=== PATIENT | male | born 1955 | race Caucasian/White ===

== ENCOUNTER 2017-10-21 18:28 | Emergency (ER) | payer BC ==
[2017-10-21] MEDS ORDERED: Diphtheria,Pertussis(Acell),Tetanus Vaccine 0.5 ML Syringe IM ONE (19:15)
--- NOTE | 2017-10-21 19:25 | EDM.PDOC ---
ED HPI GENERAL MEDICAL PROBLEM - General Chief Complaint: Laceration Stated Complaint: LACERATION RT MIDDLE FINGER Time Seen by Provider: 10/21/17 19:15 - History of Present Illness INITIAL COMMENTS - FREE TEXT/NARRATIVE: HISTORY AND PHYSICAL: History of present illness: The patient is a 62 year-old male who is a diabetic and presents with complaints of a tissue loss laceration to the tip of his right third finger that occurred while he was using a mandolin cutting onions. He has no other complaints of finger or hand pain and is unsure of his last tetanus shot. Patient is able to flex and extend it all the digits and was in his usual state of good health prior to these events. Review of systems: As per history of present illness and below otherwise all systems reviewed and negative. Past medical history: As per history of present illness and as reviewed below otherwise noncontributory. Surgical history: As per history of present illness and as reviewed below otherwise noncontributory. Social history: No reported history of drug or alcohol abuse. Family history: As per history of present illness and as reviewed below otherwise noncontributory. Physical exam: : Well-developed well-nourished man who is nontoxic and vital signs reviewed by me HEENT: Atraumatic, normocephalic, negative for conjunctival pallor or scleral icterus, mucous membranes moist, throat clear, neck supple, nontender, trachea midline. Lungs: Clear to auscultation, breath sounds equal bilaterally, chest nontender. Heart: S1S2, regular rate and rhythm no overt murmurs Abdomen: Deferred Pelvis: Deferred Genitourinary: Deferred. Rectal: Deferred. Extremities: Atraumatic except for the soft tissue tuft of the right third digit where there is a 1 cm in diameter circular area of tissue loss which is clean and not irregular. There is active oozing at the tip of the finger. The nail and nailbed are intact. Patient is able to flex and extend at this digit and then no other injuries on the remainder of the fingers or hand. The legs are , negative for cords or calf pain. Neurovascular unremarkable. Neuro: Awake, alert, oriented. Cranial nerves II through XII unremarkable. Cerebellum unremarkable. Motor and sensory unremarkable throughout. Exam nonfocal. Diagnostics: [] Therapeutics: Tdap, wound care Using Gelfoam and pressure I was able to achieve hemostasis for the wounds. A dressing was applied by nursing afterwards. Impression: Tissue loss laceration to the right third digit Definitive disposition and diagnosis as appropriate pending reevaluation and review of above. right 3rd finger Pain Score (Numeric/FACES): 3 - Related Data Allergies Allergy/AdvReac Type Severity Reaction Status Date / Time oxycodone [From Percocet] Allergy Syncope Verified 10/21/17 18:47 Home Meds: Home Meds Aspirin [Agustin Chewable] 81 mg PO DAILY 10/21/17 [History] Atenolol 25 mg PO DAILY 10/21/17 [History] Chlorthalidone 25 mg PO DAILY 10/21/17 [History] Insulin Pump Cartridge [Omnipod] 10/21/17 [History] Isosorbide Mononitrate [Isosorbide Mononitrate ER] 30 mg PO DAILY 10/21/17 [ History] Losartan [Cozaar] 100 mg PO DAILY 10/21/17 [History] Montelukast [Singulair] 10 mg PO DAILY 10/21/17 [History] Rosuvastatin [Crestor] 20 mg PO DAILY 10/21/17 [History] Past Medical History HEENT History: Reports: Other (See Below) Other HEENT History: diabetic retinopathy Cardiovascular History: Reports: Hypertension Gastrointestinal History: Reports: GERD Neurological History: Reports: None Endocrine/Metabolic History: Reports: Diabetes, Type I Dermatologic History: Reports: None - Infectious Disease History Infectious Disease History: Reports: Chicken Pox, Measles, Mumps Social & Family History - Family History Family Medical History: Noncontributory - Tobacco Use Smoking Status *Q: Never Smoker - Alcohol Use Days Per Week of Alcohol Use: 7 Number of Drinks Per Day: 2 Total Drinks Per Week: 14 - Recreational Drug Use Recreational Drug Use: No ED ROS GENERAL - Review of Systems Review Of Systems: ROS reveals no pertinent complaints other than HPI. ED EXAM, SKIN/RASH Exam: See Below (See dictation) Course - Vital Signs Last Recorded V/S: Last Vital Signs Temp 35.4 C 10/21/17 18:50 Pulse 80 10/21/17 18:50 Resp 18 10/21/17 18:50 BP 144/85 H 10/21/17 18:50 Pulse Ox 94 L 10/21/17 18:50 - Orders/Labs/Meds Orders: Active Orders 24 hr Category Date Time Status Communication Order [RC] STAT Care 10/21/17 19:20 Active Vaccines to be Administered [RC] PER UNIT ROUTINE Care 10/21/17 19:15 Active Meds: Medications Discontinued Medications Generic Name Dose Route Start Last Admin Trade Name Kvng PRN Reason Stop Dose Admin Diphtheria/Tetanus/Acell Pertussis 0.5 ml 10/21/17 19:15 Adacel IM 10/21/17 19:16 .ONCE ONE Departure - Departure Time of Disposition: 20:05 Disposition: Home, Self-Care 01 Condition: Good Clinical Impression: Laceration of finger Qualifiers: Encounter type: initial encounter Finger: index finger Damage to nail status: without damage Foreign body presence: without foreign body Laterality: right Qualified Code(s): S61.210A - Laceration without foreign body of right index finger without damage to nail, initial encounter - Discharge Information Referrals: Shaka Rosenthal MD [Primary Care Provider] - Forms: ED Department Discharge Additional Instructions: The following information is given to patients seen in the emergency department who are being discharged to home. This information is to outline your options for follow-up care. We provide all patients seen in our emergency department with a follow-up referral. The need for follow-up, as well as the timing and circumstances, are variable depending upon the specifics of your emergency department visit. If you don't have a primary care physician on staff, we will provide you with a referral. We always advise you to contact your personal physician following an emergency department visit to inform them of the circumstance of the visit and for follow-up with them and/or the need for any referrals to a consulting specialist. The emergency department will also refer you to a specialist when appropriate. This referral assures that you have the opportunity for followup care with a specialist. All of these measure are taken in an effort to provide you with optimal care, which includes your followup. Under all circumstances we always encourage you to contact your private physician who remains a resource for coordinating your care. When calling for followup care, please make the office aware that this follow-up is from your recent emergency room visit. If for any reason you are refused follow-up, please contact the [facility] emergency department at and ask to speak to the emergency department charge nurse. [address] [place] [address] [facility] Specialty clinic-Plastic Surgery and Hand Surgery Professional Building [address] [place] [address] [address] [place] [address] Please keep the dressing that I place here in the ER on until Monday when you may remove the gauze but do not disrupt the Gelfoam. You can then replace the gauze. Please call and follow-up with your provider in the clinic for a hand specialist next week for further care and evaluation and the Gelfoam was placed in the ER will dissolve and fall off on its own as you warm tissue. Return to ER as needed and as discussed. If bleeding starts to restart or if there is any oozing please apply direct pressure for 5-10 minutes and reevaluate. - My Orders Last 24 Hours: My Active Orders 10/21/17 19:15 Vaccines to be Administered [RC] PER UNIT ROUTINE 10/21/17 19:20 Communication Order [RC] STAT - Assessment/Plan Last 24 Hours: My Active Orders 10/21/17 19:15 Vaccines to be Administered [RC] PER UNIT ROUTINE 10/21/17 19:20 Communication Order [RC] STAT
[2017-10-21 20:16] VITALS: BP 135/83
== END 2017-10-21 20:28 | disposition home or self-care (01) ==
LOC: MW.ED 18:28
DX: S61.212A Laceration without foreign body of right middle finger without damage to nail, initial encounter (principal); S61.210A Laceration without foreign body of right index finger without damage to nail, initial encounter; I10 Essential (primary) hypertension; K21.9 Gastro-esophageal reflux disease without esophagitis; E10.9 Type 1 diabetes mellitus without complications; Z79.82 Long term (current) use of aspirin; Z79.4 Long term (current) use of insulin; Z79.899 Other long term (current) drug therapy; Z88.6 Allergy status to analgesic agent; Z23 Encounter for immunization; W45.8XXA Other foreign body or object entering through skin, initial encounter
CPT/HCPCS: 90471; 90715; 99282-25; 99283

== ENCOUNTER 2020-10-14 13:07 | Observation (INO) | payer BC ==
--- NOTE | 2020-10-14 13:15 | EDM.PDOC ---
ED HPI GENERAL MEDICAL PROBLEM - General Stated Complaint: HEART RACING LIGHT HEADED Time Seen by Provider: 10/14/20 13:14 Source of Information: Reports: Patient History Limitations: Reports: No Limitations - History of Present Illness INITIAL COMMENTS - FREE TEXT/NARRATIVE: HISTORY AND PHYSICAL: History of present illness: Review of systems: As per history of present illness and below otherwise all systems reviewed and negative. Past medical history: As per history of present illness and as reviewed below otherwise noncontributory. Surgical history: As per history of present illness and as reviewed below otherwise noncontributory. Social history: See social history for further information Family history: As per history of present illness and as reviewed below otherwise noncontribut ory. Physical exam: General: Well developed and well nourished. Alert and orientated x 3. Nontoxic in appearance and in no acute distress. Vital signs are stable and have been reviewed by me. Nursing notes were reviewed. HEENT: Atraumatic, normocephalic, pupils equal and reactive bilaterally, negative for conjunctival pallor or scleral icterus, mucous membranes moist, TMs normal bilaterally, throat clear, neck supple, nontender, trachea midline. No drooling or trismus noted. No meningeal signs. No hot potato voice noted. Lungs: Clear to auscultation, breath sounds equal bilaterally, chest nontender. Normal work of breathing, no accessory muscles used. Heart: S1S2, regular rate and rhythm without overt murmur Abdomen: Soft, nondistended, nontender. Negative for masses or hepatosplenomega ly. Negative for costovertebral tenderness. Pelvis: Stable nontender. Skin: Intact, warm, dry. No lesions or rashes noted. Hematologic: No petechiae or purpra. Mucosa appropriate color and normal nail bed color and refill. Extremities: Atraumatic, moves all extremities per self without difficulty or deficits, negative for cords or calf pain. Neurovascular unremarkable. Neuro: Awake, alert, oriented. Cranial nerves II through XII unremarkable. Cerebellum unremarkable. Motor and sensory unremarkable throughout. Exam nonfocal. Psychiatric: Mood and affect are appropriate. Normal thought process. Answering questions appropriately. Notes: I have talked with the patient about today's findings, in addition to providing specific details for plan of care. Reassessment at the time of disposition demonstrates that the patient is in no acute distress. The patient is stable for discharge, counseling was provided and we discussed in great detail signs and symptoms that would prompt them to return to the Emergency Department. Medication, follow up and supportive care measures were reviewed and discussed. Voices understanding and is agreeable to plan of care. Denies any further questions or concerns at this time. Diagnostics: Therapeutics: Prescription: Impression: Plan: 1. Today your . 2. 3. We encourage you to follow up with your primary care provider and/or recommended specialist in the next few days for re-evaluation and further care/management. If your symptoms should worsen, new symptoms develop or any of the signs and symptoms we discussed should arise please return to the emergency room or call 911 (if needed). Definitive disposition and diagnosis as appropriate pending reevaluation and review of above. - Related Data Allergies Allergy/AdvReac Type Severity Reaction Status Date / Time oxycodone [From Percocet] Allergy Syncope Verified 10/21/17 18:47 Home Meds: Home Meds Aspirin [Agustin Chewable] 81 mg PO DAILY 10/21/17 [History] Chlorthalidone 25 mg PO DAILY 10/21/17 [History] Insulin Pump Cartridge [Omnipod] 10/21/17 [History] Isosorbide Mononitrate [Isosorbide Mononitrate ER] 30 mg PO DAILY 10/21/17 [History] Losartan [Cozaar] 100 mg PO DAILY 10/21/17 [History] Montelukast [Singulair] 10 mg PO DAILY 10/21/17 [History] Rosuvastatin [Crestor] 20 mg PO DAILY 10/21/17 [History] atenoloL [Atenolol] 25 mg PO DAILY 10/21/17 [History] Past Medical History HEENT History: Reports: Other (See Below) Other HEENT History: diabetic retinopathy Cardiovascular History: Reports: Hypertension Gastrointestinal History: Reports: GERD Neurological History: Reports: None Endocrine/Metabolic History: Reports: Diabetes, Type I Dermatologic History: Reports: None - Infectious Disease History Infectious Disease History: Reports: Chicken Pox, Measles, Mumps Social & Family History - Family History Family Medical History: No Pertinent Family History
--- NOTE | 2020-10-14 13:15 | PCM.SN.2 ---
- Free Text/Narrative Note: EKG Time 110pm Rate 84 NSR no HELADIO
--- NOTE | 2020-10-14 13:56 | EDM.PDOC ---
ED HPI GENERAL MEDICAL PROBLEM - General Chief Complaint: Cardiovascular Problem Stated Complaint: HEART RACING LIGHT HEADED Time Seen by Provider: 10/14/20 13:14 Source of Information: Reports: Patient History Limitations: Reports: No Limitations - History of Present Illness INITIAL COMMENTS - FREE TEXT/NARRATIVE: Is a 65-year-old male who presents today for palpitations. Patient states that normally when he eats [place] food he gets his racing of his heart. But states that he was having sunflower seeds and some soda when he had similar symptoms. For this blood pressure was 190/100 and his heart rate was in the 90s and he made it concerned. Patient has a pulse ox at home and how he is able to check his numbers. On arrival patient states he feels back to normal has no chest pain no shortness of breath nausea vomiting. Patient also reported he never had chest pain today. Patient had a Holter monitor about a year ago that was essentially negative. Patient also had a catheterization that was a year ago does show 40% blockage. Patient denies any shortness of breath or any other complaints. - Related Data Allergies Allergy/AdvReac Type Severity Reaction Status Date / Time oxycodone [From Percocet] Allergy Syncope Verified 10/14/20 13:13 Home Meds: Home Meds Aspirin [Agustin Chewable] 81 mg PO DAILY 10/21/17 [History] Chlorthalidone 25 mg PO DAILY 10/21/17 [History] Insulin Pump Cartridge [Omnipod] 10/21/17 [History] Isosorbide Mononitrate [Isosorbide Mononitrate ER] 30 mg PO DAILY 10/21/17 [History] Losartan [Cozaar] 100 mg PO DAILY 10/21/17 [History] Montelukast [Singulair] 10 mg PO DAILY 10/21/17 [History] Rosuvastatin [Crestor] 20 mg PO DAILY 10/21/17 [History] atenoloL [Atenolol] 25 mg PO DAILY 10/21/17 [History] Past Medical History HEENT History: Reports: Other (See Below) Other HEENT History: diabetic retinopathy Cardiovascular History: Reports: Hypertension Gastrointestinal History: Reports: GERD Neurological History: Reports: None Endocrine/Metabolic History: Reports: Diabetes, Type I Dermatologic History: Reports: None - Infectious Disease History Infectious Disease History: Reports: Chicken Pox, Measles, Mumps - Past Surgical History Other Endocrine Surgeries/Procedures: Insulin pump Social & Family History - Family History Family Medical History: No Pertinent Family History - Tobacco Use Tobacco Use Status *Q: Never Tobacco User - Caffeine Use Caffeine Use: Reports: Coffee - Recreational Drug Use Recreational Drug Use: No ED ROS GENERAL - Review of Systems Review Of Systems: See Below Constitutional: Reports: No Symptoms HEENT: Reports: No Symptoms Respiratory: Reports: No Symptoms Cardiovascular: Reports: No Symptoms Endocrine: Reports: No Symptoms GI/Abdominal: Reports: No Symptoms : Reports: No Symptoms Musculoskeletal: Reports: No Symptoms Skin: Reports: No Symptoms Neurological: Reports: No Symptoms Psychiatric: Reports: No Symptoms Hematologic/Lymphatic: Reports: No Symptoms Immunologic: Reports: No Symptoms ED EXAM, GENERAL - Physical Exam Exam: See Below Exam Limited By: No Limitations General Appearance: Alert, WD/WN Eye Exam: Bilateral Eye: EOMI, PERRL Respiratory/Chest: No Respiratory Distress, Lungs Clear Cardiovascular: Normal Peripheral Pulses, Regular Rate, Rhythm GI/Abdominal: Normal Bowel Sounds, Soft, Non-Tender Extremities: Normal Inspection, Normal Range of Motion Neurological: Alert, Oriented, CN II-XII Intact, Normal Cognition, Normal Gait #1 Interpretation EKG Date: 10/14/20 Time: 13:10 Rhythm: NSR Rate (Beats/Min): 84 ST-T: Normal Course - Vital Signs Last Recorded V/S: Last Vital Signs Temp 98 F 10/14/20 13:13 Pulse 67 10/14/20 14:30 Resp 16 10/14/20 14:30 BP 142/86 H 10/14/20 14:30 Pulse Ox 96 10/14/20 14:30 - Orders/Labs/Meds Orders: Active Orders 24 hr Category Date Time Status COVID-19/FLU A+B [MOLEC] Stat Lab 10/14/20 14:51 Ordered Labs: Laboratory Tests 10/14/20 10/14/20 Range/Units 13:20 13:20 WBC 8.20 (4.0-11.0) K/uL RBC 5.13 (4.50-5.90) M/uL Hgb 15.1 (13.0-17.0) g/dL Hct 45.3 (38.0-50.0) % MCV 88.3 (80.0-98.0) fL MCH 29.4 (27.0-32.0) pg MCHC 33.3 (31.0-37.0) g/dL RDW Std Deviation 45.5 (28.0-62.0) fl RDW Coeff of Octavio 14 (11.0-15.0) % Plt Count 245 (150-400) K/uL MPV 11.00 (7.40-12.00) fL Neut % (Auto) 54.5 (48.0-80.0) % Lymph % (Auto) 31.7 (16.0-40.0) % [place] % (Auto) 8.5 (0.0-15.0) % Eos % (Auto) 4.8 (0.0-7.0) % Baso % (Auto) 0.5 (0.0-1.5) % Neut # (Auto) 4.5 (1.4-5.7) K/uL Lymph # (Auto) 2.6 H (0.6-2.4) K/uL [place] # (Auto) 0.7 (0.0-0.8) K/uL Eos # (Auto) 0.4 (0.0-0.7) K/uL Baso # (Auto) 0.0 (0.0-0.1) K/uL Nucleated RBC % 0.0 /100WBC Nucleated RBCs # 0 K/uL Sodium 143 (136-148) mmol/L Potassium 3.7 (3.5-5.1) mmol/L Chloride 104 (98-107) mmol/L Carbon Dioxide 26.8 (21.0-32.0) mmol/L BUN 31 H (7.0-18.0) mg/dL Creatinine 1.3 (0.8-1.3) mg/dL Est Cr Clr Drug Dosing 65.73 mL/min Estimated GFR (MDRD) 55.8 ml/min Glucose 148 H (74-106) mg/dL Calcium 9.5 (8.5-10.1) mg/dL Phosphorus 3.5 (2.6-4.7) mg/dL Magnesium 2.0 (1.8-2.4) mg/dL Total Bilirubin 0.4 (0.2-1.0) mg/dL AST 41 H (15-37) IU/L ALT 64 H (14-63) IU/L Alkaline Phosphatase 113 (46-116) U/L Creatine Kinase 165 (26-308) U/L Troponin I < 0.050 (0.000-0.056) ng/mL Total Protein 7.9 (6.4-8.2) g/dL Albumin 3.9 (3.4-5.0) g/dL Globulin 4.0 (2.6-4.0) g/dL Albumin/Globulin Ratio 1.0 (0.9-1.6) - Re-Assessments/Exams Free Text/Narrative Re-Assessment/Exam: 10/14/20 14:57 Troponins are negative EKG was reviewed patient had a brief period bradycardia patient will be admitted to observation in telemetry to monitor for this bradycardia. Departure - Departure Time of Disposition: 14:58 Disposition: Admitted As Inpatient 68 Condition: Good Clinical Impression: Near syncope - Discharge Information *PRESCRIPTION DRUG MONITORING PROGRAM REVIEWED*: Not Applicable *COPY OF PRESCRIPTION DRUG MONITORING REPORT IN PATIENT TAMMY: Not Applicable Referrals: PCP,None [Primary Care Provider] - Forms: ED Department Discharge Sepsis Event Note (ED) - Evaluation Sepsis Screening Result: No Definite Risk - Focused Exam Vital Signs: Vital Signs Temp Pulse Resp BP Pulse Ox 10/14/20 14:30 67 16 142/86 H 96 10/14/20 13:30 79 16 164/97 H 95 10/14/20 13:13 98 F 50 L 20 176/91 H 97 - My Orders Last 24 Hours: My Active Orders 10/14/20 14:51 COVID-19/FLU A+B [MOLEC] Stat - Assessment/Plan Last 24 Hours: My Active Orders 10/14/20 14:51 COVID-19/FLU A+B [MOLEC] Stat Assessment:: Is a 62-year-old male who presents today for palpitation. Patient heart rate has been less than 100 since arrival. Patient blood pressure slightly elevated to the 180s over mid 90s. Patient had extensive cardiac work-up in the past. Will obtain labs x-ray and EKG. Patient will possibly need to be admitted for telemetry monitoring.
[2020-10-14 14:11] LABS: BLOOD UREA NITROGEN,BUN 31 mg/dL (7.0-18.0); CARBON DIOXIDE,CO2 26.8 mmol/L (21.0-32.0); CHLORIDE,CL 104 mmol/L (98-107); GLUCOSE RANDOM 148 mg/dL (74-106); POTASSIUM,K 3.7 mmol/L (3.5-5.1); SODIUM,NA 143 mmol/L (136-148)
--- NOTE | 2020-10-14 14:38 | CR ---
INDICATION: Lightheaded TECHNIQUE: Chest radiograph 1 view COMPARISON: 11/09/2016 FINDINGS: Mediastinum: The mediastinum is normal in appearance. The heart silhouette is normal in size and morphology. Lung: Both lungs are unremarkable in appearance. The right mid lung is obscured by a defibrillator pad. No sign of pleural effusion seen. No pneumothorax is identified. Bone and Soft tissue: Unremarkable for age. IMPRESSION: 1. No acute cardiopulmonary disease is seen. Dictated by: Alfonso Schneider MD @ 10/14/2020 14:36:25 (Electronically Signed)
[2020-10-14 15:54] LABS: CORONAVIRUS COVID-19 NAA NEGATIVE (NEGATIVE); INFLUENZA A NAA NEGATIVE (NEGATIVE); INFLUENZA B NAA NEGATIVE (NEGATIVE)
--- NOTE | 2020-10-14 16:27 | PCM.HP.2 ---
H&P History of Present Illness - General Date of Service: 10/14/20 Admit Problem/Dx: Admission Diagnosis/Problem Admission Diagnosis/Problem Near syncope Source of Information: Patient History Limitations: Reports: No Limitations - History of Present Illness Initial Comments - Free Text/Narative: This 65-year-old male with past medical history of diabetes type 1 with insulin pump, HTN, anticoagulant therapy, ischemic heart disease SVT, presented to the ER today with complaints of elevated blood pressure and pulse rate. He reports that he was in line for the [employer] and was eating a significant amount of sunflower seeds. He reports he got home and felt a little lightheaded and just off. He checked his pressure which it was noted to be 180s to 190s/80s to 90s he also noticed that heart rate was around 90. He then took his atenolol which he usually takes in the afternoon. He reports that he has been taking himself off blood pressure medications including his Imdur and chlorthalidone as of recently. He reports that he was evaluated for cardiac issues approximately 1- 1/[address] Fernández in [place]. He reports he was started on Eliquis and Imdur but denies history of heart failure or atrial fibrillation. He reports he wore a Holter monitor but that otherwise did not show anything. He reports he had a heart catheterization which showed 40% blockage in of coronary artery but had no stenting and has been doing well since. He reports he had the same feelings when he ate a significant amount of sodium or salt in the past and feels it was potentially sunflower seeds. He denies any alcohol use no tobacco use and no recreational drug use. Reports his last A1c was 7.2 slightly elevated from previous. He denies basal insulin right but boluses with mealtimes. He denies any chest pain or shortness of breath and no palpitations. Reports he is feeling improved now reports that when he was initially walking into the ER he did feel lightheaded and near syncopal. That has since improved and he otherwise is doing much better. No abdominal pain no urinary troubles and no diarrhea or constipation. In the ER no leukocytosis noted sodium 143 potassium 3.7 BUN 31 creatinine 1.3 glucose was 148 troponin negative chest x-ray negative EKG sinus rhythm right 80s no ST or T wave inversions. No arrhythmia noted and bradycardia was noted on cafeteria monitor. No EKG of bradycardia noted. He will be admitted observation for near syncope and episode of bradycardia. PCP Dr. Ariadna Fernández, Cardiology Upon review of medical chart, he recently saw Dr. Rosenthal September 24, 2020 with complaints of dizziness with standing. His atenolol dose was decreased to 12.5 mg daily. At that time Dr. Rosenthal mentioned he potentially could lower the dose of chlorthalidone along with stopping or holding isosorbide. Patient apparently has done this for himself but has continued to take atenolol. Per chart review of Dr. Fernández Holter monitor revealed one episode of atrial fibrillation so he was started on Eliquis for paroxysmal atrial fibrillation. Angiogram was completed January 2019 which showed 30 to 40% LAD disease 20% mid LAD 20% RCA yet ejection fraction 60% with mild coronary artery disease no intervention was done due to the preserved LV systolic function no significant valvular disease. Mild concentric hypertrophy noted with no diastolic dysfunction. - Related Data Allergies/Adverse Reactions: Allergies Allergy/AdvReac Type Severity Reaction Status Date / Time oxycodone [From Percocet] Allergy Syncope Verified 10/14/20 13:13 Home Medications: Home Meds Aspirin [Agustin Chewable] 81 mg PO DAILY 10/21/17 [History] Chlorthalidone 25 mg PO DAILY 10/21/17 [History] Insulin Pump Cartridge [Omnipod] 10/21/17 [History] Isosorbide Mononitrate [Isosorbide Mononitrate ER] 30 mg PO DAILY 10/21/17 [History] Losartan [Cozaar] 100 mg PO DAILY 10/21/17 [History] Montelukast [Singulair] 10 mg PO DAILY 10/21/17 [History] Rosuvastatin [Crestor] 20 mg PO DAILY 10/21/17 [History] atenoloL [Atenolol] 25 mg PO DAILY 10/21/17 [History] Past Medical History HEENT History: Reports: Other (See Below) Other HEENT History: diabetic retinopathy Cardiovascular History: Reports: Hypertension Gastrointestinal History: Reports: GERD Neurological History: Reports: None Endocrine/Metabolic History: Reports: Diabetes, Type I Dermatologic History: Reports: None - Infectious Disease History Infectious Disease History: Reports: Chicken Pox, Measles, Mumps - Past Surgical History Other Endocrine Surgeries/Procedures: Insulin pump Social & Family History - Family History Family Medical History: No Pertinent Family History - Tobacco Use Tobacco Use Status *Q: Never Tobacco User - Caffeine Use Caffeine Use: Reports: Coffee - Recreational Drug Use Recreational Drug Use: No H&P Review of Systems - Review of Systems: Review Of Systems: See Below General: Reports: No Symptoms. Denies: Fever, Chills, Malaise, Weakness HEENT: Reports: No Symptoms. Denies: Headaches, Sinus Congestion, Visual Changes Pulmonary: Reports: No Symptoms. Denies: Shortness of Breath Cardiovascular: Reports: No Symptoms. Denies: Chest Pain Gastrointestinal: Reports: No Symptoms. Denies: Abdominal Pain, Black Stool, Bloody Stool, Nausea, Vomiting Genitourinary: Reports: No Symptoms. Denies: Dysuria, Frequency, Burning Musculoskeletal: Reports: No Symptoms. Denies: Neck Pain Skin: Reports: No Symptoms Psychiatric: Reports: No Symptoms Neurological: Reports: No Symptoms Hematologic/Lymphatic: Reports: No Symptoms Immunologic: Reports: No Symptoms Exam - Exam Exam: See Below - Vital Signs Vital Signs: Last Vital Signs Temp 98 F 10/14/20 13:13 Pulse 63 10/14/20 15:30 Resp 16 10/14/20 15:30 BP 145/83 H 10/14/20 15:30 Pulse Ox 95 10/14/20 15:30 Weight: 100 kg - Exam General: Alert, Oriented, Cooperative HEENT: Conjunctiva Clear, Mucosa Moist & Sunshine, Pupils Equal Lungs: Clear to Auscultation, Normal Respiratory Effort Cardiovascular: Regular Rate, Regular Rhythm, Normal S1, Normal S2. No: Irregular Rhythm, Bradycardia, Tachycardia, Systolic Murmur GI/Abdominal Exam: Normal Bowel Sounds, Soft, Non-Tender Extremities: Normal Inspection, Normal Range of Motion, Non-Tender, No Pedal Edema Neuro Extensive - Mental Status: Alert, Oriented x3 Neuro Extensive - Motor, Sensory, Reflexes: CN II-XII Intact Psychiatric: Alert, Normal Affect, Normal Mood - Patient Data Lab Results Last 24 hrs: Laboratory Results - last 24 hr 10/14/20 10/14/20 10/14/20 Range/Units 13:20 13:20 15:05 WBC 8.20 (4.0-11.0) K/uL RBC 5.13 (4.50-5.90) M/uL Hgb 15.1 (13.0-17.0) g/dL Hct 45.3 (38.0-50.0) % MCV 88.3 (80.0-98.0) fL MCH 29.4 (27.0-32.0) pg MCHC 33.3 (31.0-37.0) g/dL RDW Std Deviation 45.5 (28.0-62.0) fl RDW Coeff of Octavio 14 (11.0-15.0) % Plt Count 245 (150-400) K/uL MPV 11.00 (7.40-12.00) fL Neut % (Auto) 54.5 (48.0-80.0) % Lymph % (Auto) 31.7 (16.0-40.0) % Ada % (Auto) 8.5 (0.0-15.0) % Eos % (Auto) 4.8 (0.0-7.0) % Baso % (Auto) 0.5 (0.0-1.5) % Neut # (Auto) 4.5 (1.4-5.7) K/uL Lymph # (Auto) 2.6 H (0.6-2.4) K/uL Ada # (Auto) 0.7 (0.0-0.8) K/uL Eos # (Auto) 0.4 (0.0-0.7) K/uL Baso # (Auto) 0.0 (0.0-0.1) K/uL Nucleated RBC % 0.0 /100WBC Nucleated RBCs # 0 K/uL Sodium 143 (136-148) mmol/L Potassium 3.7 (3.5-5.1) mmol/L Chloride 104 (98-107) mmol/L Carbon Dioxide 26.8 (21.0-32.0) mmol/L BUN 31 H (7.0-18.0) mg/dL Creatinine 1.3 (0.8-1.3) mg/dL Est Cr Clr Drug Dosing 65.73 mL/min Estimated GFR (MDRD) 55.8 ml/min Glucose 148 H (74-106) mg/dL Calcium 9.5 (8.5-10.1) mg/dL Phosphorus 3.5 (2.6-4.7) mg/dL Magnesium 2.0 (1.8-2.4) mg/dL Total Bilirubin 0.4 (0.2-1.0) mg/dL AST 41 H (15-37) IU/L ALT 64 H (14-63) IU/L Alkaline Phosphatase 113 (46-116) U/L Creatine Kinase 165 (26-308) U/L Troponin I < 0.050 (0.000-0.056) ng/mL Total Protein 7.9 (6.4-8.2) g/dL Albumin 3.9 (3.4-5.0) g/dL Globulin 4.0 (2.6-4.0) g/dL Albumin/Globulin Ratio 1.0 (0.9-1.6) Influenza Type A RNA NEGATIVE (NEGATIVE) Influenza Type B RNA NEGATIVE (NEGATIVE) SARS-CoV-2 RNA (LIAM) NEGATIVE (NEGATIVE) Result Diagrams: 10/14/20 13:20 10/14/20 13:20 Sepsis Event Note - Evaluation Sepsis Screening Result: No Definite Risk - Focused Exam Vital Signs: Vital Signs Temp Pulse Resp BP Pulse Ox 10/14/20 15:30 63 16 145/83 H 95 10/14/20 14:30 67 16 142/86 H 96 10/14/20 13:30 79 16 164/97 H 95 10/14/20 13:13 98 F 50 L 20 176/91 H 97 - Problem List (1) Near syncope SNOMED Code(s): 890023055 ICD Code: R55 - SYNCOPE AND COLLAPSE Status: Acute Current Visit: Yes (2) HTN (hypertension) SNOMED Code(s): 36444975 ICD Code: I10 - ESSENTIAL (PRIMARY) HYPERTENSION Status: Chronic Current Visit: Yes Qualifiers: Hypertension type: essential hypertension Qualified Code(s): I10 - Essential (primary) hypertension (3) Paroxysmal A-fib SNOMED Code(s): 446234853 ICD Code: I48.0 - PAROXYSMAL ATRIAL FIBRILLATION Status: Acute Current Visit: Yes (4) Ischemic heart disease SNOMED Code(s): 143410665 ICD Code: I25.9 - CHRONIC ISCHEMIC HEART DISEASE, UNSPECIFIED Status: Acute Current Visit: Yes (5) CAD (coronary artery disease) SNOMED Code(s): 73710995 ICD Code: I25.10 - ATHSCL HEART DISEASE OF [place] CORONARY ARTERY W/O ANG PCTRS Status: Acute Current Visit: Yes (6) Type 1 diabetes SNOMED Code(s): 58659655 ICD Code: E10.9 - TYPE 1 DIABETES MELLITUS WITHOUT COMPLICATIONS Status: Acute Current Visit: Yes Problem List Initiated/Reviewed/Updated: Yes Orders Last 24hrs: Active Orders 24 hr Category Date Time Status Patient Status [ADT] Routine ADT 10/14/20 16:02 Active Assessment/Plan Comment:: This 65-year-old male admitted with near syncope 1. Near syncope: -Monitor on telemetry -Trend troponins -Obtain orthostatic vital signs -Hold atenolol for now, took this afternoon prior to arrival to ED -Reviewed cardiology notes will place on chart 2. DM type I -Monitor blood sugars 3 times daily AC patient does have continuous glucose monitor intact -Continue insulin pump per patient home management -Patient unsure of basal rate but does enter in carbohydrates and blood sugars with meals. -It appears previous basal rate on July 2020 with diabetic education, basal rate at 12 AM 0.97 units/h 7 AM 1.2 units/h 12 PM 0.9 units/h totaling 23.1 units in 24 hours time. 3. HTN/CAD -Appears he is having hypertensive issues -Currently blood pressure is well maintained -We will monitor closely -Continue Imdur and chlorthalidone for now along with losartan. -Did discuss low-sodium diet as this can affect blood pressure significantly 4. Paroxysmal atrial fibrillation -Monitor on telemetry -Continue Eliquis VTE prophylaxis: Eliquis CODE STATUS: Full code Dispo: Patient needs to had a [place] in a.m. and is requesting discharge by 9 AM. As long as he is stable he will likely be discharged in a.m.
[2020-10-14] MEDS ORDERED: Ondansetron 4 MG/2 ML SDV IVPUSH PRN (17:13)
[2020-10-14] MEDS ORDERED: Docusate Sodium 100 MG Cap PO PRN (17:13)
[2020-10-14] MEDS ORDERED: Glucagon,Human Recombinant 1 MG Vial IM PRN (17:15)
[2020-10-14] MEDS ORDERED: 50% Dextrose in Water 50 ML Syringe IV PRN (17:15)
[2020-10-14] MEDS ORDERED: hydrALAZINE 20 MG/ML SDV IVPUSH PRN (17:17)
[2020-10-14] MEDS: Insulin Aspart 100 Units/ML 3 ML Pen SUBCUT SCH ×2 (18:26→19:41)
[2020-10-14] MEDS: Apixaban 5 MG Tab PO SCH (20:52)
[2020-10-14] MEDS: Acetaminophen 325 MG Tab PO PRN (20:53)
[2020-10-14] MEDS ORDERED: Tamsulosin 0.4 MG Cap.ER PO SCH (21:00)
[2020-10-14] MEDS ORDERED: Finasteride 5 MG Tab PO SCH (21:00)
[2020-10-14] MEDS ORDERED: Melatonin 3 MG Tab PO ONE (22:32)
[2020-10-15] MEDS: Acetaminophen 325 MG Tab PO PRN (03:18)
[2020-10-15 05:39] LABS: CARBON DIOXIDE,CO2 29.8 mmol/L (21.0-32.0); POTASSIUM,K 3.7 mmol/L (3.5-5.1)
[2020-10-15 08:05] VITALS: BP 140/67; PULSE 80
[2020-10-15] MEDS: Insulin Aspart 100 Units/ML 3 ML Pen SUBCUT SCH (08:05)
[2020-10-15] MEDS: Apixaban 5 MG Tab PO SCH (08:06)
--- NOTE | 2020-10-15 13:57 | PCM.DCSUM1 ---
Discharge Summary - Hospital Course Brief History: This 65-year-old male with past medical history of diabetes type 1 with insulin pump, HTN, anticoagulant therapy, ischemic heart disease SVT, presented to the ER today with complaints of elevated blood pressure and pulse rate. He reports that he was in line for the [employer] and was eating a significant amount of sunflower seeds. He reports he got home and felt a little lightheaded and just off. He checked his pressure which it was noted to be 180s to 190s/80s to 90s he also noticed that heart rate was around 90. He then took his atenolol which he usually takes in the afternoon. He reports that he has been taking himself off blood pressure medications including his Imdur and chlorthalidone as of recently. He reports that he was evaluated for cardiac issues approximately 1-1/[address] Fernández in [place]. He reports he was started on Eliquis and Imdur but denies history of heart failure or atrial fibrillation. He reports he wore a Holter monitor but that otherwise did not show anything. He reports he had a heart catheterization which showed 40% blockage in of coronary artery but had no stenting and has been doing well since. He reports he had the same feelings when he ate a significant amount of sodium or salt in the past and feels it was potentially sunflower seeds. He denies any alcohol use no tobacco use and no recreational drug use. Reports his last A1c was 7.2 slightly elevated from previous. He denies basal insulin right but boluses with mealtimes. He denies any chest pain or shortness of breath and no palpitations. Reports he is feeling improved now reports that when he was initially walking into the ER he did feel lightheaded and near syncopal. That has since improved and he otherwise is doing much better. No abdominal pain no urinary troubles and no diarrhea or constipation. In the ER no leukocytosis no sav sodium 143 potassium 3.7 BUN 31 creatinine 1.3 glucose was 148 troponin negative chest x-ray negative EKG sinus rhythm right 80s no ST or T wave inversions. No arrhythmia noted and bradycardia was noted on nuclear monitoring technician. No EKG of bradycardia noted. He will be admitted observation for near syncope and episode of bradycardia. PCP Dr. Rosenthal. Dr. Fernández, Cardiology. Upon review of medical chart, he recently saw Dr. Rosenthal September 24, 2020 with complaints of dizziness with standing. His atenolol dose was decreased to 12.5 mg daily. At that time Dr. Rosenthal mentioned he potentially could lower the dose of chlorthalidone along with stopping or holding isosorbide. Patient apparently has done this for himself but has continued to take atenolol. Per chart review of Dr. Fernández Holter monitor revealed one episode of atrial fibrillation so he was started on Eliquis for paroxysmal atrial fibrillation. Angiogram was completed January 2019 which showed 30 to 40% LAD disease 20% mid LAD 20% RCA yet ejection fraction 60% with mild coronary artery disease no intervention was done due to the preserved LV systolic function no significant valvular disease. Mild concentric hypertrophy noted with no diastolic dysfunction Diagnosis: Stroke: No - Discharge Data Discharge Date: 10/15/20 Discharge Disposition: Home, Self-Care 01 Condition: Stable - Referral to Home Health Primary Care Physician: PCP None - Discharge Diagnosis/Problem(s) (1) Near syncope SNOMED Code(s): 427080515 ICD Code: R55 - SYNCOPE AND COLLAPSE Status: Acute (2) HTN (hypertension) SNOMED Code(s): 42441409 ICD Code: I10 - ESSENTIAL (PRIMARY) HYPERTENSION Status: Chronic Qualifiers: Hypertension type: essential hypertension Qualified Code(s): I10 - Essential (primary) hypertension (3) Paroxysmal A-fib SNOMED Code(s): 777843340 ICD Code: I48.0 - PAROXYSMAL ATRIAL FIBRILLATION Status: Acute (4) Ischemic heart disease SNOMED Code(s): 068652900 ICD Code: I25.9 - CHRONIC ISCHEMIC HEART DISEASE, UNSPECIFIED Status: Acute (5) CAD (coronary artery disease) SNOMED Code(s): 15647500 ICD Code: I25.10 - ATHSCL HEART DISEASE OF [place] CORONARY ARTERY W/O ANG PCTRS Status: Acute (6) Type 1 diabetes SNOMED Code(s): 98142712 ICD Code: E10.9 - TYPE 1 DIABETES MELLITUS WITHOUT COMPLICATIONS Status: Acute - Patient Summary/Data Hospital Course: Admission diagnoses: Near syncope Bradycardia Discharge diagnoses: Near syncope Bradycardia resolved Sampson was admitted secondary to near syncope, lightheadedness and dizziness associated with bradycardia. Bradycardia was noted for short period of time on arrival to ED. EKG did not capture bradycardia and EKG remained sinus rhythm with no acute ST or T wave changes. He had no chest pain or shortness of br eath. He reported blood pressure quite elevated at home when he took his atenolol prior to arriving to the ED. He reports he forgot to decrease the dose of atenolol as Dr. Rosenthal had counseled him to do. So he will do this for now on he will have atenolol 12.5 mg daily at home. He is to monitor his heart rate. Troponins negative x3 no arrhythmias or heart block noted on telemetry overnight. Blood pressure was well maintained here he is to continue all blood pressure medications including Imdur chlorthalidone and losartan at home. Orthostatic vital signs remained stable no changes at all. Lightheadedness and dizziness that he feels intermittently could be secondary to bradycardia as Dr. Rosenthal had suspected. He is to decrease atenolol on discharge we did place a Zio patch for 14 days to further evaluate. He was also counseled on salt intake as this will elevate blood pressures. He verbalized understanding and was discharged home today. He is to follow-up with PCP as well as Dr. Scales cardiology in [place]. He is to return to ER or clinic sooner if concerns should arise. Patient was eager for discharge today as he and his both have appointments in [place]. Daughter was driving both of them. - Patient Instructions Diet: Heart Healthy Diet, Diabetic Diet Activity: As Tolerated, No Strenuous Activities Showering/Bathing: May Shower Notify Provider of: Fever, Increased Pain, Swelling and Redness, Drainage, Nausea and/or Vomiting - Discharge Plan *PRESCRIPTION DRUG MONITORING PROGRAM REVIEWED*: Not Applicable *COPY OF PRESCRIPTION DRUG MONITORING REPORT IN PATIENT TAMMY: Not Applicable Home Medications: Home Meds Aspirin [Agustin Chewable Aspirin] 81 mg PO DAILY 10/21/17 [History] Chlorthalidone 25 mg PO DAILY 10/21/17 [History] Isosorbide Mononitrate [Isosorbide Mononitrate ER] 30 mg PO DAILY 10/21/17 [History] Losartan [Cozaar] 100 mg PO DAILY 10/21/17 [History] Montelukast [Singulair] 10 mg PO DAILY 10/21/17 [History] Rosuvastatin [Crestor] 20 mg PO DAILY 10/21/17 [History] Apixaban [Eliquis] 5 mg PO BID 10/14/20 [History] Finasteride [Proscar] 5 mg PO BEDTIME 10/14/20 [History] Tamsulosin HCl [Flomax] 0.4 mg PO BEDTIME 10/14/20 [History] atenoloL [Atenolol] 12.5 mg PO DAILY #0 10/15/20 [Rx] Oxygen Therapy Mode: Room Air Patient Handouts: Near-Syncope, [id number], Hypertension, Adult, [id number] Referrals: Noel Scales MD [Ordering Only Provider] - 11/02/20 1:40 pm Shaka Rosenthal MD [Ordering Only Provider] - 11/04/20 10:00 am (Please call and make a follow up appointment with your PCP.) - Discharge Summary/Plan Comment DC Time >30 min.: No - Patient Data Vitals - Most Recent: Last Vital Signs Temp 98.6 F 10/15/20 08:05 Pulse 80 10/15/20 08:05 Resp 16 10/15/20 08:05 BP 140/67 10/15/20 08:05 Pulse Ox 92 L 10/15/20 08:05 Orthostatic Blood Pressure [ 143/77 Standing] Orthostatic Blood Pressure [ 147/83 Sitting] Orthostatic Blood Pressure [ 147/83 Supine] Weight - Most Recent: 100.9 kg I&O - Last 24 hours: Intake & Output 10/14/20 10/15/20 10/15/20 22:59 06:59 14:59 Intake Total 600 Output Total 520 Balance 80 Lab Results - Last 24 hrs: Laboratory Results - last 24 hr 10/14/20 10/14/20 10/14/20 Range/Units 13:20 13:20 15:05 WBC 8.20 (4.0-11.0) K/uL RBC 5.13 (4.50-5.90) M/uL Hgb 15.1 (13.0-17.0) g/dL Hct 45.3 (38.0-50.0) % MCV 88.3 (80.0-98.0) fL MCH 29.4 (27.0-32.0) pg MCHC 33.3 (31.0-37.0) g/dL RDW Std Deviation 45.5 (28.0-62.0) fl RDW Coeff of Octavio 14 (11.0-15.0) % Plt Count 245 (150-400) K/uL MPV 11.00 (7.40-12.00) fL Neut % (Auto) 54.5 (48.0-80.0) % Lymph % (Auto) 31.7 (16.0-40.0) % Millard % (Auto) 8.5 (0.0-15.0) % Eos % (Auto) 4.8 (0.0-7.0) % Baso % (Auto) 0.5 (0.0-1.5) % Neut # (Auto) 4.5 (1.4-5.7) K/uL Lymph # (Auto) 2.6 H (0.6-2.4) K/uL Millard # (Auto) 0.7 (0.0-0.8) K/uL Eos # (Auto) 0.4 (0.0-0.7) K/uL Baso # (Auto) 0.0 (0.0-0.1) K/uL Nucleated RBC % 0.0 /100WBC Nucleated RBCs # 0 K/uL Sodium 143 (136-148) mmol/L Potassium 3.7 (3.5-5.1) mmol/L Chloride 104 (98-107) mmol/L Carbon Dioxide 26.8 (21.0-32.0) mmol/L BUN 31 H (7.0-18.0) mg/dL Creatinine 1.3 (0.8-1.3) mg/dL Est Cr Clr Drug Dosing 65.73 mL/min Estimated GFR (MDRD) 55.8 ml/min Glucose 148 H (74-106) mg/dL POC Glucose (60-110) mg/dL Calcium 9.5 (8.5-10.1) mg/dL Phosphorus 3.5 (2.6-4.7) mg/dL Magnesium 2.0 (1.8-2.4) mg/dL Total Bilirubin 0.4 (0.2-1.0) mg/dL AST 41 H (15-37) IU/L ALT 64 H (14-63) IU/L Alkaline Phosphatase 113 (46-116) U/L Creatine Kinase 165 (26-308) U/L Troponin I < 0.050 (0.000-0.056) ng/mL Total Protein 7.9 (6.4-8.2) g/dL Albumin 3.9 (3.4-5.0) g/dL Globulin 4.0 (2.6-4.0) g/dL Albumin/Globulin Ratio 1.0 (0.9-1.6) Influenza Type A RNA NEGATIVE (NEGATIVE) Influenza Type B RNA NEGATIVE (NEGATIVE) SARS-CoV-2 RNA (LIAM) NEGATIVE (NEGATIVE) 10/14/20 10/14/20 10/14/20 Range/Units 17:05 17:41 21:02 WBC (4.0-11.0) K/uL RBC (4.50-5.90) M/uL Hgb (13.0-17.0) g/dL Hct (38.0-50.0) % MCV (80.0-98.0) fL MCH (27.0-32.0) pg MCHC (31.0-37.0) g/dL RDW Std Deviation (28.0-62.0) fl RDW Coeff of Octavio (11.0-15.0) % Plt Count (150-400) K/uL MPV (7.40-12.00) fL Neut % (Auto) (48.0-80.0) % Lymph % (Auto) (16.0-40.0) % Millard % (Auto) (0.0-15.0) % Eos % (Auto) (0.0-7.0) % Baso % (Auto) (0.0-1.5) % Neut # (Auto) (1.4-5.7) K/uL Lymph # (Auto) (0.6-2.4) K/uL Millard # (Auto) (0.0-0.8) K/uL Eos # (Auto) (0.0-0.7) K/uL Baso # (Auto) (0.0-0.1) K/uL Nucleated RBC % /100WBC Nucleated RBCs # K/uL Sodium (136-148) mmol/L Potassium (3.5-5.1) mmol/L Chloride (98-107) mmol/L Carbon Dioxide (21.0-32.0) mmol/L BUN (7.0-18.0) mg/dL Creatinine (0.8-1.3) mg/dL Est Cr Clr Drug Dosing mL/min Estimated GFR (MDRD) ml/min Glucose (74-106) mg/dL POC Glucose 271 H (60-110) mg/dL Calcium (8.5-10.1) mg/dL Phosphorus (2.6-4.7) mg/dL Magnesium (1.8-2.4) mg/dL Total Bilirubin (0.2-1.0) mg/dL AST (15-37) IU/L ALT (14-63) IU/L Alkaline Phosphatase (46-116) U/L Creatine Kinase (26-308) U/L Troponin I < 0.050 < 0.050 (0.000-0.056) ng/mL Total Protein (6.4-8.2) g/dL Albumin (3.4-5.0) g/dL Globulin (2.6-4.0) g/dL Albumin/Globulin Ratio (0.9-1.6) Influenza Type A RNA (NEGATIVE) Influenza Type B RNA (NEGATIVE) SARS-CoV-2 RNA (LIAM) (NEGATIVE) 10/15/20 10/15/20 Range/Units 04:52 08:03 WBC (4.0-11.0) K/uL RBC (4.50-5.90) M/uL Hgb (13.0-17.0) g/dL Hct (38.0-50.0) % MCV (80.0-98.0) fL MCH (27.0-32.0) pg MCHC (31.0-37.0) g/dL RDW Std Deviation (28.0-62.0) fl RDW Coeff of Octavio (11.0-15.0) % Plt Count (150-400) K/uL MPV (7.40-12.00) fL Neut % (Auto) (48.0-80.0) % Lymph % (Auto) (16.0-40.0) % Millard % (Auto) (0.0-15.0) % Eos % (Auto) (0.0-7.0) % Baso % (Auto) (0.0-1.5) % Neut # (Auto) (1.4-5.7) K/uL Lymph # (Auto) (0.6-2.4) K/uL Millard # (Auto) (0.0-0.8) K/uL Eos # (Auto) (0.0-0.7) K/uL Baso # (Auto) (0.0-0.1) K/uL Nucleated RBC % /100WBC Nucleated RBCs # K/uL Sodium 142 (136-148) mmol/L Potassium 3.7 (3.5-5.1) mmol/L Chloride 104 (98-107) mmol/L Carbon Dioxide 29.8 (21.0-32.0) mmol/L BUN 31 H (7.0-18.0) mg/dL Creatinine 1.3 (0.8-1.3) mg/dL Est Cr Clr Drug Dosing 67.62 mL/min Estimated GFR (MDRD) 55.8 ml/min Glucose 155 H (74-106) mg/dL POC Glucose 167 H (60-110) mg/dL Calcium 8.9 (8.5-10.1) mg/dL Phosphorus (2.6-4.7) mg/dL Magnesium 1.8 (1.8-2.4) mg/dL Total Bilirubin (0.2-1.0) mg/dL AST (15-37) IU/L ALT (14-63) IU/L Alkaline Phosphatase (46-116) U/L Creatine Kinase (26-308) U/L Troponin I (0.000-0.056) ng/mL Total Protein (6.4-8.2) g/dL Albumin (3.4-5.0) g/dL Globulin (2.6-4.0) g/dL Albumin/Globulin Ratio (0.9-1.6) Influenza Type A RNA (NEGATIVE) Influenza Type B RNA (NEGATIVE) SARS-CoV-2 RNA (LIAM) (NEGATIVE) Med Orders - Current: Current Medications Discontinued Medications Acetaminophen (Tylenol) 650 mg PO Q4H PRN PRN Reason: Pain (Mild 1-3)/fever Last Admin: 10/15/20 03:18 Dose: 650 mg Documented by: Apixaban (Eliquis) 5 mg PO BID DARÍO Last Admin: 10/15/20 08:06 Dose: 5 mg Documented by: Dextrose/Water (Dextrose 50% In Water) 50 ml IV ASDIRECTED PRN PRN Reason: Hypoglycemia Docusate Sodium (Colace) 100 mg PO BID PRN PRN Reason: Constipation Finasteride (Proscar) 5 mg PO BEDTIME [facility] Last Admin: 10/14/20 20:52 Dose: 5 mg Documented by: Glucagon (Glucagen) 1 mg IM ASDIRECTED PRN PRN Reason: Hypoglycemia Hydralazine HCl (Apresoline) 10 mg IVPUSH Q4H PRN PRN Reason: SBP>180 Insulin Aspart (Novolog) 0 unit SUBCUT TIDAC [facility] Last Admin: 10/15/20 08:05 Dose: 1.2 units Documented by: Melatonin (Melatonin) 9 mg PO ONETIME ONE Stop: 10/14/20 22:33 Last Admin: 10/14/20 22:50 Dose: 9 mg Documented by: Ondansetron HCl (Zofran) 4 mg IVPUSH Q4H PRN PRN Reason: Nausea Tamsulosin HCl (Flomax) 0.4 mg PO BEDTIME [facility] Last Admin: 10/14/20 20:52 Dose: 0.4 mg Documented by: - Exam General: Reports: Alert, Oriented, Cooperative, No Acute Distress Lungs: Reports: Clear to Auscultation, Normal Respiratory Effort Cardiovascular: Reports: Regular Rate, Regular Rhythm GI/Abdominal Exam: Normal Bowel Sounds, Soft, Non-Tender Rectal (Males) Exam: Rectal Fissure Back Exam: Reports: Normal Inspection Extremities: Normal Inspection, Normal Range of Motion Neurological: Reports: No New Focal Deficit Psy/Mental Status: Reports: Alert, Normal Affect, Normal Mood
== END 2020-10-15 09:00 | disposition home or self-care (01) ==
LOC: MW.ED 13:07 → MW.MS 16:02
PROVIDERS: ADMIT Student in an Organized Health Care Education/Training Program; ATTEND Student in an Organized Health Care Education/Training Program
DX: I10 Essential (primary) hypertension (principal); R55 Syncope and collapse; E10.9 Type 1 diabetes mellitus without complications; I48.0 Paroxysmal atrial fibrillation; I25.10 Atherosclerotic heart disease of native coronary artery without angina pectoris; Z20.822 Contact with and (suspected) exposure to COVID-19; Z88.5 Allergy status to narcotic agent; Z79.899 Other long term (current) drug therapy; Z79.82 Long term (current) use of aspirin
CPT/HCPCS: 0240U; 36415; 71045; 71045-26; 80048; 80053; 82550; 82962; 83735; 84100; 84484; 85025; 93005; 93010; 99283; 99285-25; A9270-GY; G0378

== ENCOUNTER 2021-06-29 19:46 | Emergency (ER) | payer BC ==
--- NOTE | 2021-06-29 21:11 | EDM.PDOC ---
ED HPI GENERAL MEDICAL PROBLEM - General Chief Complaint: Genitourinary Problem Stated Complaint: RECENT PROSTATE SURGERY, PENIS SWELLING Time Seen by Provider: 06/29/21 20:56 Source of Information: Reports: Patient History Limitations: Reports: No Limitations - History of Present Illness INITIAL COMMENTS - FREE TEXT/NARRATIVE: HISTORY AND PHYSICAL: History of present illness: Patient is a 66-year-old male who presents to the emergency room with concerns of penis swelling. Patient had a prostatectomy on 06/25/2021 at [facility] and recently was discharged home. He states he has had no complaints or concerns up till about 5 PM when he noticed his Graham tugging on his leg and a few small blood clots in his Graham bag. Shortly after he noticed some localized swelling to the mid shaft of his penis. He denies any injury, trauma or falls. Patient denies any fever, chills, headache, change in vision, syncope or near syncope. Denies any chest pain, back pain, shortness of breath or cough. Denies any abdominal pain, nausea, vomiting, diarrhea, constipation or dysuria. Patient has been eating and drinking appropriately. Review of systems: As per history of present illness and below otherwise all systems reviewed and negative. Past medical history: As per history of present illness and as reviewed below otherwise noncontributory. Surgical history: As per history of present illness and as reviewed below otherwise noncontributory. Social history: See social history for further information Family history: As per history of present illness and as reviewed below otherwise noncontributory. Physical exam: General: Well developed and well nourished. Alert and orientated x 3. Nontoxic in appearance and in no acute distress. Vital signs are stable and have been reviewed by me. Nursing notes were reviewed. HEENT: Atraumatic, normocephalic, pupils equal and reactive bilaterally, negative for conjunctival pallor or scleral icterus, mucous membranes moist, TMs normal bilaterally, throat clear, neck supple, nontender, trachea midline. No drooling or trismus noted. No meningeal signs. No hot potato voice noted. Lungs: Clear to auscultation bilaterally. No wheezes, rales, or rhonchi. Chest nontender. Normal work of breathing, no accessory muscles used. Heart: S1S2, regular rate and rhythm without overt murmur, gallops, or rubs. No JVD. No peripheral edema Abdomen: Soft, nondistended, nontender. Normoactive bowel sounds. Negative for masses or costovertebral tenderness. Pelvis: Stable nontender. Skin: Healing bruising of the testicles. Localized midshaft swelling of the penis. Dried blood around the meatus. Remaining skin is intact, warm, dry. No lesions or rashes noted. Hematologic: No petechiae or purpra. Mucosa appropriate color and normal nail bed color and refill. Extremities: Atraumatic, moves all extremities per self without difficulty or deficits, negative for cords or calf pain. Neurovascular unremarkable. Neuro: Awake, alert, oriented. Cranial nerves II through XII unremarkable. Cerebellum unremarkable. Motor and sensory unremarkable throughout. Exam nonfocal. Psychiatric: Mood and affect are appropriate. Normal thought process. Answering questions appropriately. Please note that the patient was seen and evaluated during the 2019 SARS-CoV-2 novel coronavirus pandemic period. Community viral transmission is ongoing at time of this encounter and the emergency department is operating under pandemic response procedures. Medical Decision Making: During my physical exam it is noted that his Graham catheter is not adhered to his thigh correctly, directly pulling on the Graham itself. The pigtail of the Graham was resecured to the thigh strap and patient states it feels much better. He is concerned that the direct pulling of the Graham catheter started when his symptoms started but would still like evaluation. We will do basic lab work. We did do thorough Graham education. Dr Christopher was involved in this case. I have talked with the patient about today's findings, in addition to providing specific details for plan of care. Reassessment at the time of disposition demonstrates that the patient is in no acute distress. The patient is stable for discharge, counseling was provided and we discussed in great detail signs and symptoms that would prompt them to return to the Emergency Department. Medication, follow up and supportive care measures were reviewed and discussed. Voices understanding and is agreeable to plan of care. Denies any further questions or concerns at this time. Diagnostics: CBC, CMP, UA Therapeutics: IV fluids, Rocephin Prescription: Keflex Impression: Graham catheter problem Plan: 1. You were evaluated today on an emergent basis. Your graham wasn't placed appropraitely, the pulling was causing the pain and blood to occur. Make sure you are securing the Graham appropriately to your thigh strap. There is some redness and swelling on the penis, take the antibiotic as prescribed and follow- up with urologist. 2. You can alternate Tylenol and ibuprofen as needed for pain and fever management. 3. We encourage you to follow up with your primary care provider and/or recommen ded specialist in the next few days for re-evaluation and further care/management. 4. If your symptoms should worsen, new symptoms develop or any of the signs and symptoms we discussed should arise please return to the emergency room or call 911 (if needed). Definitive disposition and diagnosis as appropriate pending reevaluation and review of above. Middle Penis Pain Score (Numeric/FACES): 3 - Related Data Allergies Allergy/AdvReac Type Severity Reaction Status Date / Time No Known Allergies Allergy Verified 06/29/21 20:25 Home Meds: Home Meds Aspirin [Agustin Chewable Aspirin] 81 mg PO DAILY 10/21/17 [History] Chlorthalidone 25 mg PO DAILY 10/21/17 [History] Isosorbide Mononitrate [Isosorbide Mononitrate ER] 30 mg PO DAILY 10/21/17 [History] Losartan [Cozaar] 100 mg PO DAILY 10/21/17 [History] Montelukast [Singulair] 10 mg PO DAILY 10/21/17 [History] Rosuvastatin [Crestor] 20 mg PO DAILY 10/21/17 [History] Apixaban [Eliquis] 5 mg PO BID 10/14/20 [History] Finasteride [Proscar] 5 mg PO BEDTIME 10/14/20 [History] Tamsulosin HCl [Flomax] 0.4 mg PO BEDTIME 10/14/20 [History] atenoloL [Atenolol] 12.5 mg PO DAILY #0 10/15/20 [Rx] cephALEXin [Keflex] 500 mg PO BID 5 Days #10 cap 06/29/21 [Rx] Past Medical History HEENT History: Reports: Other (See Below) Other HEENT History: diabetic retinopathy Cardiovascular History: Reports: Afib, CAD, Hypertension Other Cardiovascular History: Per [place] [facility] patient has these dx as well Gastrointestinal History: Reports: GERD Neurological History: Reports: None Endocrine/Metabolic History: Reports: Diabetes, Type I Dermatologic History: Reports: None - Infectious Disease History Infectious Disease History: Reports: Chicken Pox, Measles, Mumps - Past Surgical History Other Endocrine Surgeries/Procedures: Insulin pump Social & Family History - Family History Family Medical History: No Pertinent Family History - Tobacco Use Tobacco Use Status *Q: Never Tobacco User - Caffeine Use Caffeine Use: Reports: Coffee - Recreational Drug Use Recreational Drug Use: No ED ROS GENERAL - Review of Systems Review Of Systems: Comprehensive ROS is negative, except as noted in HPI. ED EXAM, RENAL/ - Physical Exam Exam: See Below (See dictation) Course - Vital Signs Last Recorded V/S: Last Vital Signs Temp 97.4 F 06/29/21 20:19 Pulse 77 06/29/21 22:46 Resp 20 06/29/21 22:46 BP 139/82 06/29/21 22:46 Pulse Ox 95 06/29/21 22:46 - Orders/Labs/Meds Labs: Laboratory Tests 06/29/21 06/29/21 06/29/21 Range/Units 21:09 21:09 22:00 WBC 11.67 H (4.0-11.0) K/uL RBC 4.55 (4.50-5.90) M/uL Hgb 13.5 (13.0-17.0) g/dL Hct 39.1 (38.0-50.0) % MCV 85.9 (80.0-98.0) fL MCH 29.7 (27.0-32.0) pg MCHC 34.5 (31.0-37.0) g/dL RDW Std Deviation 42.0 (28.0-62.0) fl RDW Coeff of Octavio 14 (11.0-15.0) % Plt Count 285 (150-400) K/uL MPV 11.00 (7.40-12.00) fL Neut % (Auto) 73.0 (48.0-80.0) % Lymph % (Auto) 13.1 L (16.0-40.0) % [place] % (Auto) 10.4 (0.0-15.0) % Eos % (Auto) 3.2 (0.0-7.0) % Baso % (Auto) 0.3 (0.0-1.5) % Neut # (Auto) 8.5 H (1.4-5.7) K/uL Lymph # (Auto) 1.5 (0.6-2.4) K/uL [place] # (Auto) 1.2 H (0.0-0.8) K/uL Eos # (Auto) 0.4 (0.0-0.7) K/uL Baso # (Auto) 0.0 (0.0-0.1) K/uL Nucleated RBC % 0.0 /100WBC Nucleated RBCs # 0 K/uL Sodium 136 (136-148) mmol/L Potassium 3.7 (3.5-5.1) mmol/L Chloride 99 (98-107) mmol/L Carbon Dioxide 25.8 (21.0-32.0) mmol/L BUN 38 H (7.0-18.0) mg/dL Creatinine 1.6 H (0.8-1.3) mg/dL Est Cr Clr Drug Dosing 52.71 mL/min Estimated GFR (MDRD) 43.7 ml/min Glucose 263 H (74-106) mg/dL Calcium 9.2 (8.5-10.1) mg/dL Total Bilirubin 0.4 (0.2-1.0) mg/dL AST 23 (15-37) IU/L ALT 33 (14-63) IU/L Alkaline Phosphatase 98 (46-116) U/L Total Protein 7.1 (6.4-8.2) g/dL Albumin 3.0 L (3.4-5.0) g/dL Globulin 4.1 H (2.6-4.0) g/dL Albumin/Globulin Ratio 0.7 L (0.9-1.6) Urine Color YELLOW Urine Appearance CLOUDY Urine pH 5.5 (5.0-8.0) Ur Specific [place] 1.020 (1.001-1.035) Urine Protein 30 H (NEGATIVE) mg/dL Urine Glucose (UA) 250 H (NEGATIVE) mg/dL Urine Ketones NEGATIVE (NEGATIVE) mg/dL Urine Occult Blood LARGE H (NEGATIVE) Urine Nitrite NEGATIVE (NEGATIVE) Urine Bilirubin NEGATIVE (NEGATIVE) Urine Urobilinogen 0.2 (<2.0) EU/dL Ur Leukocyte Esterase TRACE H (NEGATIVE) Urine RBC 90-100 (0-2/HPF) Urine WBC 2-5 (0-5/HPF) Ur Epithelial Cells RARE (NONE-FEW) Urine Bacteria RARE (NEGATIVE) Meds: Medications Discontinued Medications Generic Name Dose Route Start Last Admin Trade Name Kvng PRN Reason Stop Dose Admin Cephalexin 500 mg 06/29/21 22:04 06/29/21 22:37 Cephalexin 500 Mg Cap PO 06/29/21 22:05 500 mg ONETIME ONE Administration Sodium Chloride 1,000 mls @ 999 mls/hr 06/29/21 21:42 06/29/21 21:56 Normal Saline IV 06/29/21 22:42 999 mls/hr STAT ONE Administration Departure - Departure Time of Disposition: 22:05 Disposition: Home, Self-Care 01 Clinical Impression: Graham catheter problem - Discharge Information Prescriptions: cephALEXin [Keflex] 500 mg PO BID 5 Days #10 cap Instructions: Indwelling Urinary Catheter Care, Adult Referrals: Shaka Rosenthal MD [Primary Care Provider] - Forms: ED Department Discharge Additional Instructions: The following information is given to patients seen in the emergency department who are being discharged to home. This information is to outline your options for follow-up care. We provide all patients seen in our emergency department with a follow-up referral. The need for follow-up, as well as the timing and circumstances, are variable depending upon the specifics of your emergency department visit. If you don't have a primary care physician on staff, we will provide you with a referral. We always advise you to contact your personal physician following an emergency department visit to inform them of the circumstance of the visit and for follow-up with them and/or the need for any referrals to a consulting specialist. The emergency department will also refer you to a specialist when appropriate. This referral assures that you have the opportunity for follow-up care with a specialist. All of these measure are taken in an effort to provide you with optimal care, which includes your follow-up. Under all circumstances we always encourage you to contact your private physician who remains a resource for coordinating your care. When calling for follow-up care, please make the office aware that this follow-up is from your recent emergency room visit. If for any reason you are refused follow-up, please contact the [facility] Emergency Department at and asked to speak to the emergency department charge nurse. [facility] [address] [place] [id number] [facility] [address] [place] [address] Thank you for choosing the [facility] emergency department in [place] for your medical needs today. It was a pleasure caring for you. Today you were seen in the emergency department for graham catheter problems. 1. You were evaluated today on an emergent basis. Your graham wasn't placed appropriately, the pulling was causing the pain and blood to occur. Make sure you are securing the Graham appropriately to your thigh strap. There is some redness and swelling on the penis, take the antibiotic as prescribed and follow- up with urologist. 2. You can alternate Tylenol and ibuprofen as needed for pain and fever management. 3. We encourage you to follow up with your primary care provider and/or recommended specialist in the next few days for re-evaluation and further care/management. 4. If your symptoms should worsen, new symptoms develop or any of the signs and symptoms we discussed should arise please return to the emergency room or call 911 (if needed). Sepsis Event Note (ED) - Evaluation Sepsis Screening Result: No Definite Risk
[2021-06-29 21:38] LABS: CARBON DIOXIDE,CO2 25.8 mmol/L (21.0-32.0); POTASSIUM,K 3.7 mmol/L (3.5-5.1)
[2021-06-29] MEDS ORDERED: Sodium Chloride 0.9% 1,000 ML IV ONE (21:42)
[2021-06-29] MEDS ORDERED: Cephalexin 500 MG Cap PO ONE (22:04)
[2021-06-29 22:46] VITALS: BP 139/82; PULSE 77
== END 2021-06-29 22:52 | disposition home or self-care (01) ==
LOC: MW.ED 19:46
DX: T83.098A Other mechanical complication of other urinary catheter, initial encounter (principal); I48.91 Unspecified atrial fibrillation; I25.10 Atherosclerotic heart disease of native coronary artery without angina pectoris; I10 Essential (primary) hypertension; E10.9 Type 1 diabetes mellitus without complications; Z79.82 Long term (current) use of aspirin; Z79.01 Long term (current) use of anticoagulants; Z79.899 Other long term (current) drug therapy
CPT/HCPCS: 36415; 80053; 81001; 85025; 87086; 99283; A9270; J7030

== ENCOUNTER 2023-11-27 06:33 | Day surgery (SDC) | payer MEDICARE, BC ==
[~2023-11-27 06:33] MED LIST: Lactated Ringers 1,000 ML IV SCH
[2023-11-27] MEDS ORDERED: propofoL 50 ML ONE (07:18)
[2023-11-27] MEDS ORDERED: dexmedeTOMIDine HCl 200 MCG/2 ML SDV ONE (07:21)
[2023-11-27] MEDS: Lactated Ringers 1,000 ML IV SCH (07:21)
[2023-11-27] MEDS ORDERED: Lactated Ringers 1,000 ML IV SCH (08:45)
[2023-11-27 09:27] VITALS: BP 94/58; PULSE 58
== END 2023-11-27 09:16 | disposition home or self-care (01) ==
LOC: MW.SDS 06:33
PROVIDERS: ATTEND Surgery
DX: D12.3 Benign neoplasm of transverse colon (principal); D12.8 Benign neoplasm of rectum; E10.9 Type 1 diabetes mellitus without complications; I48.91 Unspecified atrial fibrillation; K21.9 Gastro-esophageal reflux disease without esophagitis; Z79.01 Long term (current) use of anticoagulants; Z79.899 Other long term (current) drug therapy
CPT/HCPCS: 45380; 88305; J2704; J7120; 00811; J3490

== ENCOUNTER 2024-05-26 16:14 | Emergency (ER) | payer MEDICARE, BC ==
[2024-05-26 16:33] LABS: BASOPHILS ABSOLUTE AUTO 0.03 K/uL (0.00-0.20); BASOPHILS PERCENT AUTO 0.3 % (0.0-1.0); EOSINOPHILS ABSOLUTE AUTO 0.17 K/uL (0.00-0.45); EOSINOPHILS PERCENT AUTO 1.8 % (0.0-6.0); HEMATOCRIT 41.5 % (42.0-52.0); HEMOGLOBIN 13.6 g/dL (14.0-18.0); IMMATURE GRAN ABSOLUTE AUTO 0.02 K/uL (0.00-0.05); IMMATURE GRAN PERCENT AUTO 0.2 % (0.0-0.4); LYMPHOCYTES PERCENT AUTO 10.7 % (24.0-44.0); MEAN CORPUSCULAR HEMOGLOBIN 27.6 pg (28.0-32.0); MEAN CORPUSCULAR HGB CONC 32.8 g/dL (32.0-36.0); MEAN CORPUSCULAR VOLUME 84.2 fL (83.0-99.0); MEAN PLATELET VOLUME 10.3 fL (9.4-12.4); MONOCYTES ABSOLUTE AUTO 1.02 K/uL (0.00-0.80); MONOCYTES PERCENT AUTO 10.9 % (0.0-8.0); NEUTROPHILS ABSOLUTE AUTO 7.12 K/uL (1.80-7.70); NEUTROPHILS PERCENT AUTO 76.1 % (41.0-71.0); PLATELET COUNT,PLT 191 K/uL (150-400); RED BLOOD CELL COUNT 4.93 M/uL (4.52-5.90); WHITE BLOOD CELL COUNT,WBC 9.36 K/uL (3.9-11.3)
[2024-05-26 16:59] LABS: ALANINE AMINOTRANSFERASE,ALT 34 IU/L (14-63); ALBUMIN 3.5 g/dL (3.4-5.0); ALKALINE PHOSPHATASE 116 U/L (46-116); ASPARTATE AMNIOTRANSFERASE,AST 18 IU/L (15-37); BILIRUBIN TOTAL 0.3 mg/dL (0.2-1.0); BLOOD UREA NITROGEN,BUN 40 mg/dL (7.0-18.0); CALCIUM 8.9 mg/dL (8.5-10.1); CARBON DIOXIDE,CO2 26.1 mmol/L (21.0-32.0); CHLORIDE,CL 104 mmol/L (98-107); CREATININE 1.7 mg/dL (0.8-1.3); EST CRCL DRUG DOSING (CG) 48.31 mL/min; ESTIMATED GFR 44 mL/min (>60); ETHANOL BLOOD MEDICAL <3 mg/dL; GLUCOSE RANDOM 212 mg/dL (74-106); LIPASE 46 U/L (16-77); POTASSIUM,K 4.4 mmol/L (3.5-5.1); PRO B-TYPE NATRIUR PEPT,BNPPRO 907 pg/mL (0-125); PROTEIN TOTAL,TP 6.9 g/dL (6.4-8.2); SODIUM,NA 137 mmol/L (136-148)
[2024-05-26 19:36] VITALS: BP 130/74; PULSE 69
== END 2024-05-26 19:36 | disposition home or self-care (01) ==
LOC: MW.ED 16:14
DX: R07.89 Other chest pain (principal); I25.10 Atherosclerotic heart disease of native coronary artery without angina pectoris; E10.22 Type 1 diabetes mellitus with diabetic chronic kidney disease; N18.9 Chronic kidney disease, unspecified; R79.89 Other specified abnormal findings of blood chemistry; I48.91 Unspecified atrial fibrillation; K21.9 Gastro-esophageal reflux disease without esophagitis; Z79.899 Other long term (current) drug therapy; Z79.01 Long term (current) use of anticoagulants; Z79.82 Long term (current) use of aspirin; Z88.6 Allergy status to analgesic agent; Z88.5 Allergy status to narcotic agent
CPT/HCPCS: 36415; 71045; 71045-26; 80053; 80307; 83690; 83880; 84484; 85025; 93005; 93010; 99285

== ENCOUNTER 2024-09-12 16:58 | Emergency (ER) | payer MEDICARE, BC ==
[2024-09-12 18:19] LABS: BASOPHILS ABSOLUTE AUTO 0.05 K/uL (0.00-0.20); BASOPHILS PERCENT AUTO 0.6 % (0.0-1.0); EOSINOPHILS ABSOLUTE AUTO 0.31 K/uL (0.00-0.45); EOSINOPHILS PERCENT AUTO 3.4 % (0.0-6.0); HEMATOCRIT 39.5 % (42.0-52.0); HEMOGLOBIN 12.8 g/dL (14.0-18.0); IMMATURE GRAN ABSOLUTE AUTO 0.02 K/uL (0.00-0.05); IMMATURE GRAN PERCENT AUTO 0.2 % (0.0-0.4); LYMPHOCYTES ABSOLUTE AUTO 1.45 K/uL (1.00-4.80); LYMPHOCYTES PERCENT AUTO 16.1 % (24.0-44.0); MEAN CORPUSCULAR HGB CONC 32.4 g/dL (32.0-36.0); MEAN CORPUSCULAR VOLUME 86.4 fL (83.0-99.0); MEAN PLATELET VOLUME 10.7 fL (9.4-12.4); MONOCYTES ABSOLUTE AUTO 1.29 K/uL (0.00-0.80); MONOCYTES PERCENT AUTO 14.3 % (0.0-8.0); NEUTROPHILS ABSOLUTE AUTO 5.89 K/uL (1.80-7.70); NEUTROPHILS PERCENT AUTO 65.4 % (41.0-71.0); PLATELET COUNT,PLT 195 K/uL (150-400); RED BLOOD CELL COUNT 4.57 M/uL (4.52-5.90); WHITE BLOOD CELL COUNT,WBC 9.01 K/uL (3.9-11.3)
[2024-09-12 18:45] LABS: APPEARANCE,URINE CLEAR; BILIRUBIN,URINE NEGATIVE (NEGATIVE); COLOR,URINE YELLOW; GLUCOSE,URINE NEGATIVE (NEGATIVE); KETONES,URINE NEGATIVE (NEGATIVE); LEUKOCYTE ESTERASE,URINE NEGATIVE (NEGATIVE); NITRITE,URINE NEGATIVE (NEGATIVE); OCCULT BLOOD,URINE NEGATIVE (NEGATIVE); PH,URINE 5.5 (5.0-8.0); PROTEIN,URINE NEGATIVE (NEGATIVE); UROBILINOGEN,URINE 0.2 EU/dL (<2.0)
[2024-09-12 18:45] LABS: ALBUMIN 3.4 g/dL (3.4-5.0); BILIRUBIN TOTAL 0.4 mg/dL (0.2-1.0); CARBON DIOXIDE,CO2 28.6 mmol/L (21.0-32.0); CREATININE 1.7 mg/dL (0.8-1.3); EST CRCL DRUG DOSING (CG) 49.02 mL/min; POTASSIUM,K 4.2 mmol/L (3.5-5.1); PROTEIN TOTAL,TP 6.7 g/dL (6.4-8.2)
[2024-09-12 21:55] VITALS: BP 153/82; PULSE 79
== END 2024-09-12 20:22 | disposition home or self-care (01) ==
LOC: MW.ED 16:58
DX: J90 Pleural effusion, not elsewhere classified (principal); R60.0 Localized edema; R03.0 Elevated blood-pressure reading, without diagnosis of hypertension; I10 Essential (primary) hypertension; E78.00 Pure hypercholesterolemia, unspecified; I48.91 Unspecified atrial fibrillation; K21.9 Gastro-esophageal reflux disease without esophagitis; E10.9 Type 1 diabetes mellitus without complications; Z79.01 Long term (current) use of anticoagulants; Z79.899 Other long term (current) drug therapy; Z79.82 Long term (current) use of aspirin; Z88.5 Allergy status to narcotic agent; Z88.6 Allergy status to analgesic agent; Z75.8 Other problems related to medical facilities and other health care
CPT/HCPCS: 36415; 71046; 71046-26; 80053; 81003; 83690; 83735; 83880; 84484; 85025; 93005; 93010; 99284

== ENCOUNTER 2024-11-17 14:00 | Emergency (ER) | payer MEDICARE, BC ==
[2024-11-17] MEDS ORDERED: Sodium Chloride 0.9% 10 ML Syringe FLUSH PRN (14:03)
[2024-11-17] MEDS ORDERED: Sodium Chloride 0.9% 2.5 ML Syringe FLUSH PRN (14:03)
[2024-11-17 15:07] LABS: BASOPHILS ABSOLUTE AUTO 0.05 K/uL (0.00-0.20); BASOPHILS PERCENT AUTO 0.6 % (0.0-1.0); EOSINOPHILS PERCENT AUTO 3.7 % (0.0-6.0); HEMATOCRIT 45.7 % (42.0-52.0); HEMOGLOBIN 15.4 g/dL (14.0-18.0); IMMATURE GRAN ABSOLUTE AUTO 0.02 K/uL (0.00-0.05); IMMATURE GRAN PERCENT AUTO 0.2 % (0.0-0.4); LYMPHOCYTES ABSOLUTE AUTO 1.42 K/uL (1.00-4.80); LYMPHOCYTES PERCENT AUTO 17.7 % (24.0-44.0); MEAN CORPUSCULAR HEMOGLOBIN 27.5 pg (28.0-32.0); MEAN CORPUSCULAR HGB CONC 33.7 g/dL (32.0-36.0); MEAN CORPUSCULAR VOLUME 81.8 fL (83.0-99.0); MEAN PLATELET VOLUME 10.6 fL (9.4-12.4); MONOCYTES ABSOLUTE AUTO 0.89 K/uL (0.00-0.80); MONOCYTES PERCENT AUTO 11.1 % (0.0-8.0); NEUTROPHILS ABSOLUTE AUTO 5.34 K/uL (1.80-7.70); NEUTROPHILS PERCENT AUTO 66.7 % (41.0-71.0); PLATELET COUNT,PLT 230 K/uL (150-400); RED BLOOD CELL COUNT 5.59 M/uL (4.52-5.90); WHITE BLOOD CELL COUNT,WBC 8.02 K/uL (3.9-11.3)
[2024-11-17 15:26] LABS: APPEARANCE,URINE CLEAR; BILIRUBIN,URINE NEGATIVE (NEGATIVE); COLOR,URINE YELLOW; GLUCOSE,URINE NEGATIVE (NEGATIVE); KETONES,URINE NEGATIVE (NEGATIVE); PROTEIN,URINE NEGATIVE (NEGATIVE)
[2024-11-17 15:27] LABS: LEUKOCYTE ESTERASE,URINE NEGATIVE (NEGATIVE); NITRITE,URINE NEGATIVE (NEGATIVE); OCCULT BLOOD,URINE NEGATIVE (NEGATIVE); UROBILINOGEN,URINE 0.2 EU/dL (<2.0)
[2024-11-17 15:32] LABS: ALBUMIN 3.7 g/dL (3.4-5.0); BILIRUBIN TOTAL 0.5 mg/dL (0.2-1.0); CALCIUM 8.9 mg/dL (8.5-10.1); CARBON DIOXIDE,CO2 28.4 mmol/L (21.0-32.0); CREATININE 2.1 mg/dL (0.8-1.3); EST CRCL DRUG DOSING (CG) 39.69 mL/min; MAGNESIUM 2.5 mg/dL (1.8-2.4); POTASSIUM,K 3.7 mmol/L (3.5-5.1); PROTEIN TOTAL,TP 7.3 g/dL (6.4-8.2)
[2024-11-17 16:17] VITALS: BP 124/72; PULSE 64
== END 2024-11-17 16:15 | disposition home or self-care (01) ==
LOC: MW.ED 14:00
DX: R07.89 Other chest pain (principal); I10 Essential (primary) hypertension; K21.9 Gastro-esophageal reflux disease without esophagitis; E78.00 Pure hypercholesterolemia, unspecified; E10.9 Type 1 diabetes mellitus without complications; Z75.8 Other problems related to medical facilities and other health care; Z88.8 Allergy status to other drugs, medicaments and biological substances; Z79.82 Long term (current) use of aspirin; Z79.4 Long term (current) use of insulin; Z79.899 Other long term (current) drug therapy
CPT/HCPCS: 36415; 71046; 71046-26; 80053; 81003; 83690; 83735; 83880; 84484; 85025; 87428-QW; 93005; 93010; 99285

== ENCOUNTER 2025-04-18 20:27 | Emergency (ER) | payer MEDICARE, BC ==
[2025-04-18] MEDS: Amoxicillin/Clavulanate K 875-125 MG Tab PO ONE (21:27)
[2025-04-18] MEDS: Diphtheria,Pertussis(Acell),Tetanus Vaccine 0.5 ML Syringe IM ONE (21:45)
[2025-04-18 21:50] VITALS: BP 138/86; PULSE 88
== END 2025-04-18 21:48 | disposition home or self-care (01) ==
LOC: MW.ED 20:27
DX: S60.512A Abrasion of left hand, initial encounter (principal); L08.9 Local infection of the skin and subcutaneous tissue, unspecified; I48.91 Unspecified atrial fibrillation; I10 Essential (primary) hypertension; E78.00 Pure hypercholesterolemia, unspecified; K21.9 Gastro-esophageal reflux disease without esophagitis; E10.9 Type 1 diabetes mellitus without complications; Z88.5 Allergy status to narcotic agent; Z88.6 Allergy status to analgesic agent; Z79.4 Long term (current) use of insulin; Z79.82 Long term (current) use of aspirin; Z79.01 Long term (current) use of anticoagulants; Z79.899 Other long term (current) drug therapy; W26.8XXA Contact with other sharp object(s), not elsewhere classified, initial encounter; Z23 Encounter for immunization
CPT/HCPCS: 90471; 90715; 99282; A9270

== ENCOUNTER 2025-07-02 13:55 | Emergency (ER) | payer MEDICARE, BC ==
[2025-07-02] MEDS ORDERED: Sodium Chloride 0.9% 2.5 ML Syringe FLUSH PRN (14:40)
[2025-07-02] MEDS ORDERED: Sodium Chloride 0.9% 10 ML Syringe FLUSH PRN (14:40)
[2025-07-02 14:54] LABS: BASOPHILS ABSOLUTE AUTO 0.06 K/uL (0.00-0.20); BASOPHILS PERCENT AUTO 0.8 % (0.0-1.0); EOSINOPHILS ABSOLUTE AUTO 0.23 K/uL (0.00-0.45); EOSINOPHILS PERCENT AUTO 3.1 % (0.0-6.0); IMMATURE GRAN ABSOLUTE AUTO 0.02 K/uL (0.00-0.05); IMMATURE GRAN PERCENT AUTO 0.3 % (0.0-0.4); LYMPHOCYTES ABSOLUTE AUTO 1.32 K/uL (1.00-4.80); LYMPHOCYTES PERCENT AUTO 17.8 % (24.0-44.0); MEAN PLATELET VOLUME 10.5 fL (9.4-12.4); MONOCYTES ABSOLUTE AUTO 0.85 K/uL (0.00-0.80); MONOCYTES PERCENT AUTO 11.5 % (0.0-8.0); NEUTROPHILS ABSOLUTE AUTO 4.92 K/uL (1.80-7.70); NEUTROPHILS PERCENT AUTO 66.5 % (41.0-71.0); NRBC ABSOLUTE 0.00 K/uL (0.00-0.02); NRBC PERCENT 0.0 /100WBC (0.0-0.2); PLATELET COUNT,PLT 212 K/uL (150-400); RED BLOOD CELL COUNT 4.88 M/uL (4.52-5.90); WHITE BLOOD CELL COUNT,WBC 7.40 K/uL (3.9-11.3)
[2025-07-02 15:07] LABS: INR 1.03 (0.86-1.11)
[2025-07-02 15:35] LABS: A/G RATIO 0.9 (0.9-1.6); ALANINE AMINOTRANSFERASE,ALT 31.0 IU/L (14-63); ASPARTATE AMNIOTRANSFERASE,AST 22.0 IU/L (15-37); BILIRUBIN TOTAL 0.3 mg/dL (0.2-1.0); BLOOD UREA NITROGEN,BUN 43.0 mg/dL (7.0-18.0); CARBON DIOXIDE,CO2 28.5 mmol/L (21.0-32.0); CHLORIDE,CL 106.0 mmol/L (98-107); CHOLESTEROL HDL 66.0 mg/dL (40-60); CHOLESTEROL LDL CALCULATED 90.0 mg/dL (60-180); CHOLESTEROL TOTAL 170.0 mg/dL (50-200); CREATININE 1.7 mg/dL (0.8-1.3); EST CRCL DRUG DOSING (CG) 47.0 mL/min; ESTIMATED GFR 43.0 mL/min (>60); GLUCOSE RANDOM 115.0 mg/dL (74-106); POTASSIUM,K 3.7 mmol/L (3.5-5.1); PRO B-TYPE NATRIUR PEPT,BNPPRO 1627.0 pg/mL (0-125); PROTEIN TOTAL,TP 6.9 g/dL (6.4-8.2); SODIUM,NA 144.0 mmol/L (136-148); VLDL CHOLESTEROL 14.0 mg/dL (5-55)
[2025-07-02 17:12] VITALS: BP 135/85; PULSE 63
== END 2025-07-02 17:10 | disposition home or self-care (01) ==
LOC: MW.ED 13:55
DX: I10 Essential (primary) hypertension (principal); R07.9 Chest pain, unspecified; E78.00 Pure hypercholesterolemia, unspecified; R07.89 Other chest pain; E10.9 Type 1 diabetes mellitus without complications; Z88.8 Allergy status to other drugs, medicaments and biological substances; Z79.82 Long term (current) use of aspirin; Z79.899 Other long term (current) drug therapy; Z79.4 Long term (current) use of insulin; Z86.79 Personal history of other diseases of the circulatory system
CPT/HCPCS: 36415; 71045; 71045-26; 80053; 80061; 83690; 83735; 83880; 84484; 85025; 85610; 93005; 93010; 99283; 99285